=== PATIENT | male | born 1950 | race Caucasian/White ===

== ENCOUNTER 2021-04-16 06:02 | Day surgery (SDC) | payer MEDICARE, MEDICAID ==
[~2021-04-16] VITALS: Ht 170.2 cm; Wt 86.0 kg
[~2021-04-16 06:02] MED LIST: ASPIRIN 81 MG CHEWABLE TABLET PO ONE; DIAZEPAM 5 MG TABLET PO ONE; DiphenhydrAMINE HCL 50 MG CAPSULE PO ONE; RINGERS SOLUTION,LACTATED 1,000 ML IV ONE
[2021-04-16] MEDS ORDERED: SODIUM CHLORIDE 0.9% 1,000 ML ONE (06:15)
[2021-04-16] MEDS ORDERED: SODIUM CHLORIDE 0.9% 1,000 ML IV ONE (06:30)
[2021-04-16 06:42] LABS: COVID AG,FIA SOURCE NASOPHARYNGEAL
[2021-04-16 06:45] LABS: BASOPHILS % (AUTO) 0.4 % (0.0-2.0); HEMATOCRIT 30.4 % (41-53); HEMOGLOBIN 10.8 g/dL (13.5-17.5); LYMPHOCYTES # (AUTO) 0.3 K/uL (1.0-4.8); LYMPHOCYTES % (AUTO) 4.3 % (22.0-44.0); MEAN CORPUSCULAR HEMOGLOBIN 31.6 pg (26.0-34.0); MEAN CORPUSCULAR HGB CONC 35.4 G/dL (31.0-37.0); MEAN CORPUSCULAR VOLUME 89 fL (80-100); MONOCYTES # (AUTO) 1.1 K/uL (0.1-1.0); MONOCYTES % (AUTO) 15.7 % (2.0-9.0); NEUTROPHILS # (AUTO) 4.5 K/uL (1.8-7.7); NEUTROPHILS % (AUTO) 64.4 % (40.0-70.0); PLATELET COUNT (AUTO) 188 K/uL (150-450); RED BLOOD CELL COUNT(AUTO) 3.41 MIL/uL (4.50-5.90)
[2021-04-16 06:51] LABS: EOSINOPHILS % (AUTO) 15.2 % (1.0-6.0)
[2021-04-16 06:57] LABS: CALCIUM, TOTAL 8.2 mg/dL (8.8-10.5); CREATININE 5.02 mg/dL (0.60-1.30); POTASSIUM 3.1 mmol/L (3.5-5.1)
[2021-04-16 07:03] LABS: ALBUMIN 3.8 g/dL (3.4-5.0); BILIRUBIN,TOTAL 0.4 mg/dL (0.1-1.0); TOTAL PROTEIN, SERUM 7.9 g/dL (6.4-8.2)
[2021-04-16] MEDS ORDERED: HEPARIN SODIUM 1000 UNITS/NS 1,000 ML ONE (07:07)
[2021-04-16] MEDS ORDERED: SODIUM BICARBONATE 50 MEQ/50 ML VIAL ONE (07:07)
[2021-04-16] MEDS ORDERED: LIDOCAINE/PF 1% 30 ML VIAL ONE (07:07)
[2021-04-16] MEDS ORDERED: IOHEXOL 300 MG/ML 100 ML VIAL ONE (07:07)
[2021-04-16] MEDS ORDERED: IOHEXOL 300 MG/ML 150 ML VIAL ONE (07:07)
[2021-04-16] MEDS ORDERED: IOHEXOL 300 MG/ML 50 ML VIAL ONE (07:07)
[2021-04-16] MEDS ORDERED: DIAZEPAM 5 MG TABLET ONE (07:13)
[2021-04-16] MEDS ORDERED: ASPIRIN 81 MG CHEWABLE TABLET ONE (07:14)
[2021-04-16] MEDS ORDERED: DiphenhydrAMINE HCL 50 MG CAPSULE ONE (07:14)
[2021-04-16 07:19] LABS: INR 1.1 (0.9-1.1); PROTHROMBIN TIME 11.7 SEC (9.4-11.6)
[2021-04-16 07:33] VITALS: BP 157/71
[2021-04-16] MEDS ORDERED: FentaNYL CITRATE PF 100 MCG/2 ML VIAL ONE (07:41)
[2021-04-16] MEDS ORDERED: MIDAZOLAM HCL 2 MG/2 ML VIAL ONE (07:41)
[2021-04-16] MEDS ORDERED: LIDOCAINE 1% 30 ML/SOD BICARB 8.4% 4 ML SQ ONE (08:00)
[2021-04-16] MEDS ORDERED: MIDAZOLAM HCL 2 MG/2 ML VIAL IVP ONE ×3 (08:00→08:15)
[2021-04-16] MEDS ORDERED: FentaNYL CITRATE PF 100 MCG/2 ML VIAL IVP ONE ×4 (08:00→08:45)
[2021-04-16] MEDS ORDERED: IOHEXOL 300 MG/ML 150 ML VIAL IARTER ONE (08:00)
[2021-04-16] MEDS ORDERED: HEPARIN SODIUM 1000 UNITS/NS 1,000 ML IARTER ONE (08:00)
[2021-04-16] MEDS ORDERED: DiphenhydrAMINE HCL 50 MG/ML VIAL ONE (08:18)
[2021-04-16] MEDS ORDERED: NITROGLYCERIN 400 MCG/SUBLINGUAL SPRAY 4.9 GM BOTTLE SL ONE ×2 (08:29→08:45)
[2021-04-16] MEDS ORDERED: DiphenhydrAMINE HCL 50 MG/ML VIAL IVP ONE (08:30)
[2021-04-16 08:46] VITALS: BP 145/64
== END 2021-04-16 12:30 | disposition home or self-care (01) ==
LOC: CATHLAB 06:02
PROVIDERS: ATTEND Internal Medicine Interventional Cardiology
DX: I25.10 Atherosclerotic heart disease of native coronary artery without angina pectoris (principal); I50.22 Chronic systolic (congestive) heart failure; E11.22 Type 2 diabetes mellitus with diabetic chronic kidney disease; I13.0 Hypertensive heart and chronic kidney disease with heart failure and stage 1 through stage 4 chronic kidney disease, or unspecified chronic kidney disease; N18.9 Chronic kidney disease, unspecified; Z79.01 Long term (current) use of anticoagulants; Z86.73 Personal history of transient ischemic attack (TIA), and cerebral infarction without residual deficits; Z79.899 Other long term (current) drug therapy; Z98.890 Other specified postprocedural states
CPT/HCPCS: 36415; 80053; 85025; 85610; 85730; 87426; 93461; 99152; 99153; C1760; C9803; J1200; J1644; J2250; J3010; J3490 ×2; J7030; Q9967 ×3; 93005; 93460